=== PATIENT | female | born 1985 | race Two or more races ===

== ENCOUNTER 2025-01-18 13:49 | Observation (INO) | payer OTHER ==
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
== END 2025-01-18 15:45 | disposition home or self-care (01) ==
LOC: EDBD 13:49 → UNDOADMOB 13:49 → LDRP 13:49
PROVIDERS: ADMIT Obstetrics & Gynecology; ATTEND Obstetrics & Gynecology
DX: O26.893 Other specified pregnancy related conditions, third trimester (principal); M54.9 Dorsalgia, unspecified; O24.419 Gestational diabetes mellitus in pregnancy, unspecified control; V89.2XXA Person injured in unspecified motor-vehicle accident, traffic, initial encounter; Y93.89 Activity, other specified; Y92.89 Other specified places as the place of occurrence of the external cause; Y99.8 Other external cause status; Z98.890 Other specified postprocedural states
CPT/HCPCS: 59025; 76805; 81002; 82962; G0378

== ENCOUNTER 2025-01-18 15:56 | Emergency (ER) | payer OTHER ==
[~2025-01-18] VITALS: Ht 165.1 cm; Wt 111.4 kg
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
[2025-01-18 18:33] VITALS: BP 110/63; PULSE 64; RESP 16; TEMP 98.4; O2SAT 96
== END 2025-01-18 18:35 | disposition home or self-care (01) ==
LOC: ER 15:56
DX: O9A.213 Injury, poisoning and certain other consequences of external causes complicating pregnancy, third trimester (principal); S39.012A Strain of muscle, fascia and tendon of lower back, initial encounter; S29.012A Strain of muscle and tendon of back wall of thorax, initial encounter; M54.2 Cervicalgia; G44.209 Tension-type headache, unspecified, not intractable; Z3A.28 28 weeks gestation of pregnancy; V43.52XA Car driver injured in collision with other type car in traffic accident, initial encounter; Y93.89 Activity, other specified; Y92.410 Unspecified street and highway as the place of occurrence of the external cause; Y99.8 Other external cause status